=== PATIENT | male | born 1950 | race Caucasian/White ===

== ENCOUNTER 2018-09-03 11:57 | Emergency (ER) | payer MEDICARE, BC ==
--- NOTE | 2018-09-03 12:57 | ER Document Report ---
ED GI/ - General Stated Complaint: ABDOMINAL PAIN Time Seen by Provider: 09/03/18 12:41 Primary Care Provider: NICOLE CARTER MD [Primary Care Provider] - Follow up as needed Notes: Patient is a 68-year-old male who states he has had some abdominal pain since April. He states it is constant. It is to the lower abdomen. No noticeable aggravating or relieving factors. No fevers, vomiting, diarrhea, or dysuria. No radiation to the back. Patient was supposed to have a colonoscopy performed by the excel vba developer Dr. Butterfield. This was held off until cardiac clearance was obtained. This recently has been obtained but the patient still has not yet had a colonoscopy. Patient had an unremarkable CT scan at an outside facility in April. TRAVEL OUTSIDE OF THE [place] IN LAST 30 DAYS: No - Related Data Allergies/Adverse Reactions: No Known Allergies Allergy (Unverified 04/23/16 04:28) Past Medical History - Social History Smoking Status: Unknown if Ever Smoked Family History: Reviewed & Not Pertinent Review of Systems - Review of Systems Constitutional: denies: Fever EENT: denies: Eye discharge, Nose discharge Cardiovascular: See HPI. denies: Chest pain, Palpitations Respiratory: denies: Short of breath Gastrointestinal: denies: Vomiting Genitourinary: denies: Dysuria Musculoskeletal: denies: Leg swelling Skin: Other - no hives. denies: Rash Neurological/Psychological: Other - no slurred speech -: Yes All other systems reviewed and negative Physical Exam - Vital signs Vitals: Resp BP 18 147/128 H 09/03/18 12:07 09/03/18 12:07 - Notes Notes: Reviewed vital signs and nursing note as charted by RN. CONSTITUTIONAL: Alert and oriented and responds appropriately to questions. Well-appearing; well-nourished HEAD: Normocephalic; atraumatic EYES: PERRL; Sclerae non-icteric ENT: Normal nose; no rhinorrhea; moist mucous membranes; pharynx without lesions noted NECK: Supple without meningismus; non-tender CARD: Regular rate and rhythm; no murmurs; symmetric distal pulses RESP: Normal chest excursion without splinting or tachypnea; breath sounds clear and equal bilaterally ABD/GI: Normal bowel sounds; non-distended; soft, mild tenderness to all 4 quadrants of the abdomen; no abdominal bruit; no palpable organomegaly or masses : Patient has no inguinal swelling, testicular pain or swelling BACK: The back appears normal and is non-tender to palpation EXT: Normal ROM in all joints; non-tender to palpation; no edema SKIN: No acute lesions noted NEURO: CN 2-12 intact; 5/5 bilateral upper and lower extremity strength with sensation intact to light touch PSYCH: The patient's mood and manner are appropriate. Grooming and personal hygiene are appropriate. Course - Re-evaluation Re-evalutation: 09/03/18 12:57 Given the history and physical examination and the patient's age I will obtain basic labs, liver panel, lipase, lactic acid level, EKG, CT scan of the abdomen and pelvis. She has no abdominal bruits or focal tenderness. No inguinal m asses or scrotal tenderness present. 09/03/18 13:21 EKG shows a heart of 86, atrial sensed ventricular paced 09/03/18 14:57 No change in exam. No vomiting here. Hemoccult is negative. White blood cell count is normal. Lactic acid, creatinine, and liver panel as recorded. CT is pending at 330. 09/03/18 15:20 I spoke to the patient and the who states that the patient has a history of chronic kidney disease. Dr. Rich is the primary care physician but her office is currently closed. Patient is being taken to CT. 09/03/18 16:22 CT scan shows a pleural effusion/possible infiltrate. However the patient has been afebrile with no cough or shortness of breath. CT scan as recorded o alicia. Given the patient's pain, age, lactic acid of 3.5, I have consulted surgery. Mesenteric ischemia given the vasculopathic nature of the patient is possible, but I am uncertain what to make of the lactic acid given his elevated creatinine. There is no old labs here in the patient's primary care physician is currently closed so I am not able to evaluate the patient's past laboratory values. 09/03/18 17:[address] Villeda has reviewed the labs, imaging, and is examined the patient. He does not believe that this is an acute abdominal problem that requires admission. He believes that the patient's lactic acid elevation is most likely baseline. I have attempted to call the patient's sushi chef, Dr. Dick, that the patient supposedly has seen for chronic kidney disease in the past. She states she has not seen the patient for a couple years. The patient himself states that his creatinine was 5 in the past. Patient does have a CT scan showing a pleural effusion but again the patient has no shortness of breath, heart rate is 67, satting 100% on room air with no cough or fever. I do not believe imaging of the chest or antibiotics are necessary for this particular indication. Patient has no distinct right upper quadrant abdominal pain. Patient does have some transaminitis with a bilirubin as recorded. CT scan shows no obvious stones or signs of inflammation of the gallbladder. The surgeon who evaluated the patient at bedside does not believe that this is gallbladder related. I have ordered a repeat lactic acid. Patient and family would like to go home. I believe if the above repeat lactic acid is unchanged or improved, given the chronic history of the patient's symptoms, having chronic kidney disease according to the patient and his , that this is a reasonable option. Patient has scheduled outpatient follow-up with a excel vba developer for colonoscopy. 09/03/18 18:28 Repeat lactic acid is 3.49. Patient has drank juice with no acute discomfort. No vomiting or diarrhea here. Repeat examination is improved. Patient has received a liter of fluid. Given the extensive history and physical and discussion above, with repeat examinations, repeat lactic acid, surgical consultation, follow-up scheduled with a excel vba developer, patient's desire, patient will be discharged home with strict return precautions and follow-up with the primary provider and excel vba developer. - Vital Signs Vital signs: Temp Pulse Resp BP Pulse Ox 98.7 F 21 H 93/77 L 100 09/03/18 12:56 09/03/18 16:00 09/03/18 15:23 09/03/18 15:02 - Laboratory Result Diagrams: 09/03/18 11:35 09/03/18 11:35 Laboratory results interpreted by me: 09/03/18 09/03/18 09/03/18 11:35 11:35 12:35 Hgb 10.8 L Hct 34.9 L MCV 75 L MCH 23.2 L MCHC 31.0 L RDW 21.3 H Seg Neuts % (Manual) 85 H Lymphocytes % (Manual) 8 L Potassium 3.2 L BUN 78 H Creatinine 2.81 H Est GFR ( Amer) 27 L Est GFR (Non-Af Amer) 22 L Glucose 147 H Lactic Acid Calcium 8.1 L Total Bilirubin 2.8 H Direct Bilirubin 1.8 H AST 150 H ALT 137 H Alkaline Phosphatase 191 H Lipase 457.3 H Urine Protein 100 H Urine Blood MODERATE H Urine Urobilinogen 2.0 H 09/03/18 09/03/18 14:10 17:26 Hgb Hct MCV MCH MCHC RDW Seg Neuts % (Manual) Lymphocytes % (Manual) Potassium BUN Creatinine Est GFR ( Amer) Est GFR (Non-Af Amer) Glucose Lactic Acid 3.5 H 3.5 H Calcium Total Bilirubin Direct Bilirubin AST ALT Alkaline Phosphatase Lipase Urine Protein Urine Blood Urine Urobilinogen Discharge - Discharge Clinical Impression: Transaminitis Abdominal pain Qualifiers: Abdominal location: unspecified location Qualified Code(s): R10.9 - Unspecified abdominal pain Chronic renal failure Qualifiers: Chronic kidney disease stage: unspecified stage Qualified Code(s): N18.9 - Chronic kidney disease, unspecified Condition: Good Disposition: HOME, SELF-CARE Additional Instructions: Come back immediately with any worsening pain, fevers, vomiting, cough, shortness of breath, or any other acute problems. It is very important for you to follow-up with your excel vba developer as scheduled for your colonoscopy, and please have your primary care physician repeat your creatinine as it is 2.81 today. Please return at any time that you would like for further evaluation and admission. Referrals: NICOLE CARTER MD [Primary Care Provider] - Follow up as needed
[2018-09-03 13:40] LABS: HEMATOCRIT 34.9 % (37.9-51.0); HEMOGLOBIN 10.8 g/dL (13.5-17.0); MEAN CORPUSCULAR HEMOGLOBIN 23.2 pg (27.0-33.4); MEAN CORPUSCULAR VOLUME 75 fl (80-97); PLATELET COUNT 154 10^3/uL (150-450); RED BLOOD COUNT 4.65 10^6/uL (4.35-5.55); RED CELL DISTRIBUTION WIDTH 21.3 % (11.5-14.0); WHITE BLOOD COUNT 6.7 10^3/uL (4.0-10.5)
[2018-09-03 13:43] LABS: APPEARANCE,URINE CLEAR; BILIRUBIN,URINE NEGATIVE (NEGATIVE); COLOR,URINE YELLOW; GLUCOSE, URINE NEGATIVE (NEGATIVE); KETONES,URINE NEGATIVE (NEGATIVE); LEUKOCYTE ESTERASE,URINE NEGATIVE (NEGATIVE); NITRITE,URINE NEGATIVE (NEGATIVE); PROTEIN,URINE 100 mg/dL (NEGATIVE); URINE SPECIFIC GRAVITY 1.017
[2018-09-03 13:47] LABS: ALANINE AMINOTRANSFERASE 137 U/L (21-72); ALBUMIN 3.6 g/dL (3.5-5.0); ALKALINE PHOSPHATASE 191 U/L (38-126); ANION GAP 14 (5-19); ASPARTATE AMINO TRANSFERASE 150 U/L (17-59); BILIRUBIN,DIRECT 1.8 mg/dL (0.0-0.4); BILIRUBIN,TOTAL 2.8 mg/dL (0.2-1.3); BLOOD UREA NITROGEN 78 mg/dL (7-20); CALCIUM 8.1 mg/dL (8.4-10.2); CARBON DIOXIDE 24 mmol/L (22-30); CHLORIDE 102 mmol/L (98-107); GLUCOSE 147 mg/dL (75-110); LIPASE 457.3 U/L (23-300); POTASSIUM 3.2 mmol/L (3.6-5.0); SODIUM 139.8 mmol/L (137-145); TOTAL PROTEIN 6.6 g/dL (6.3-8.2)
[2018-09-03 14:03] LABS: ABSOLUTE LYMPHOCYTES# (MANUAL) 0.5 10^3/uL (0.5-4.7); ABSOLUTE MONOCYTES # (MANUAL) 0.4 10^3/uL (0.1-1.4); ABSOLUTE NEUTROPHILS# (MANUAL) 5.7 10^3/uL (1.7-8.2); BASOPHILS % (MANUAL) 1 % (0-2); EOSINOPHILS % (MANUAL) 0 % (0-6); LYMPHOCYTES % (MANUAL) 8 % (13-45); MONOCYTES % (MANUAL) 6 % (3-13); SEGMENTED NEUTROPHILS % (MAN) 85 % (42-78); TOTAL CELLS COUNTED 100
[2018-09-03 14:06] LABS: ACANTHOCYTES SLIGHT; ANISOCYTOSIS 2+; BURR CELLS 1+; OVALOCYTES 1+; PLATELET COMMENT ADEQUATE; POIKILOCYTOSIS 2+; POLYCHROMASIA SLIGHT; TOXIC GRANULATION SLIGHT
[2018-09-03] MEDS ORDERED: NORMAL SALINE 1000 ML 1,000 ML IV ONE (14:58)
--- NOTE | 2018-09-03 15:56 | RADIOLOGY REPORT (SQ) ---
EXAM DESCRIPTION: CT ABD/PELVIS ORAL ONLY COMPLETED DATE/TIME: 09/03/2018 3:44 pm REASON FOR STUDY: 2, abdominal pain COMPARISON: None. TECHNIQUE: CT scan of the abdomen and pelvis performed without intravenous or oral contrast. Images reviewed with lung, soft tissue, and bone windows. Reconstructed coronal and sagittal MPR images revi ewed. All images stored on PACS. All CT scanners at this facility use dose modulation, iterative reconstruction, and/or weight based d osing when appropriate to reduce radiation dose to as low as reasonably achievable (ALARA). [facility]: Dose Right [facility]: CareDose [facility]: Dose Right [facility]: Teradose 4D [facility]: [employer] RADIATION DOSE: CT Rad equipment meets quality standard of care and radiation dose reduction techniq ues were employed. CTDIvol: 8.6 mGy. DLP: 480 mGy-cm.mGy. LIMITATIONS: None. FINDINGS: LOWER CHEST: There is a moderate right-sided pleural effusion. There is associated right basilar atelectasis. Left lung field is clear. NON-CONTRASTED LIVER, SPLEEN, ADRENALS: There is a small amount of perihepatic and perisplenic fluid. No focal hepatic splenic lesions. No adrenal masses. PANCREAS: The pancreas is atrophic. GALLBLADDER: No identified stones by CT criteria. No inflammatory changes to suggest cholecystitis. RIGHT KIDNEY AND URETER: Areas of cortical thinning. No suspicious masses pre No significant calci fications. No hydronephrosis or hydroureter. LEFT KIDNEY AND URETER: No suspicious masses. Assessment limited by lack of IV contrast. No signifi cant calcifications. No hydronephrosis or hydroureter. AORTA AND RETROPERITONEUM: The aorta demonstrates atherosclerotic change. Visceral vessels are calci fied. No aneurysmal dilatation. BOWEL AND PERITONEAL CAVITY: Gas pattern is nonobstructive. No focal inflammatory changes. APPENDIX: Not visualized. PELVIS, BLADDER, AND ABDOMINAL WALL:There is subcutaneous edema. No free fluid in the pelvis. BONES: No significant findings. OTHER: No other significant finding. IMPRESSION: 1. Moderate right-sided pleural effusion. There is associated right basilar atelectasis and/or pneumonia. 2. Small amount of fluid surrounding the liver and spleen. Ideology of this is uncertain. No focal hepatic or splenic masses. 3. Diffuse atherosclerotic change of the abdominal aorta. Largest diameter is 2.9 cm. COMMENT: Quality ID # [id number]: Final reports with documentation of one or more dose reduction techniques (e.g., Automated exposure control, adjustment of the mA and/or kV according to patient size, use of iterative reconstruction technique) TECHNICAL DOCUMENTATION: JOB ID: [id number] [employer]- All Rights Reserved Reading location - IP/workstation name: [email or web address]
--- NOTE | 2018-09-03 17:16 | PDOC CONSULTATION ---
Consultation Consult Date: 09/03/18 Attending physician:: Daniel Consult reason:: Abdominal pain History of Present Illness Admission Date/PCP: NICOLE CARTER MD Patient complains of: Abdominal pain History of Present Illness: MATTIE BRUCE is a 68 year old male Presents to the emergency department via ground rescue accompanied by his coming from home to the emergency department at [facility] because in essence the patient has intractable abdominal pain, inanition, difficulty ambulating, and decreased bowel activity. Patient has a long history of mu ltiple chronic medical problems, in his usual state of poor health, transferring bed to chair limited ambulation. 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 He has diffuse ao rtoiliac disease, status post right AKA. Patient is on chronic pain management for musculoskeletal, abdominal and peripheral vascular pain. Patient was seen in the emergency department where he had a CT scan of the abdomen and pelvis with oral contrast which showed fluid around the spleen, right lower lobe atelectasis, small effusion, diffuse aorto iliac atherosclerotic disease. Surgery was consulted for opinion. Of note patient lactate level was 8.5. According the patient and his , he has had chronic abdominal pain for months. He was to have a colonoscopy by Dr. Almazan but the patient's AICD served battery malfunction and need to be replaced. The colonoscopy had not been rescheduled. Patient has no history of gastrointestinal disorders other than inanition. Past Medical History Past Medical History: History of head neck cancer, peripheral vascular disease, hyperlipidemia, coronary artery disease, history of multiple myocardial infarctions and stent placement. History of extracranial carotid artery disease. Chronic renal insufficiency Cardiac Medical History: Reports: Hypertension Hematology: Reports: Anemia Past Surgical History Past Surgical History: Appendectomy, carotid endarterectomy x3 right neck; pacer defibrillator left subclavian position, multiple revascularizations right lower extremity terminating right [id number] amputation. Past Surgical History: Reports: Appendectomy, Cardiac Catheterization Social History Information Source: Patient Lives with: Other - Smoking Status: Unknown if Ever Smoked Past Social History Note: Patient has a long history of smoking stopped 20+ years ago. Family History Family History: Reviewed & Not Pertinent Parental Family History Reviewed: Yes Children Family History Reviewed: Yes Sibling(s) Family History Reviewed.: Yes Medication/Allergy Allergies/Adverse Reactions: No Known Allergies Allergy (Unverified 04/23/16 04:28) Review of Systems ROS unobtainable: Other - patient has a constellation of chronic medical problems, with chronic symptoms involving all of his organ systems. He is cared for by his at their home in Physical Exam Vital Signs: Temp Pulse Resp BP Pulse Ox 98.7 F 21 H 93/77 L 100 09/03/18 12:56 09/03/18 16:00 09/03/18 15:23 09/03/18 15:02 General appearance: PRESENT: no acute distress Head exam: PRESENT: normocephalic Eye exam: PRESENT: other - No jaundice Mouth exam: PRESENT: dry mucosa Teeth exam: PRESENT: poor dentation Neck exam: PRESENT: other - Multiple scars right neck with tissue loss; no carotid upstroke appreciated. Respiratory exam: PRESENT: rhonchi - Right lower lung field GI/Abdominal exam: PRESENT: other - Slightly protuberant no peritoneal signs no rigidity no umbilical or groin hernias. No distention; no organomegaly Rectal exam: PRESENT: deferred Gentrourinary exam: PRESENT: testicular tenderness Musculoskeletal exam: PRESENT: other - Chronic hemic changes to left foot, left great toe in particular Neurological exam: PRESENT: awake, oriented to person, oriented to place, oriented to time Psychiatric exam: PRESENT: appropriate affect Results Laboratory Results: 09/03/18 11:35 09/03/18 11:35 09/03/18 09/03/18 09/03/18 11:35 11:35 12:35 WBC 6.7 RBC 4.65 Hgb 10.8 L Hct 34.9 L MCV 75 L MCH 23.2 L MCHC 31.0 L RDW 21.3 H Plt Count 154 Seg Neutrophils % Not Reportable Lymphocytes % Not Reportable Monocytes % Not Reportable Eosinophils % Not Reportable Basophils % Not Reportable Absolute Neutrophils Not Reportable Absolute Lymphocytes Not Reportable Absolute Monocytes Not Reportable Absolute Eosinophils Not Reportable Absolute Basophils Not Reportable Sodium 139.8 Potassium 3.2 L Chloride 102 Carbon Dioxide 24 Anion Gap 14 BUN 78 H Creatinine 2.81 H Est GFR ( Amer) 27 L Est GFR (Non-Af Amer) 22 L Glucose 147 H Lactic Acid Calcium 8.1 L Total Bilirubin 2.8 H AST 150 H ALT 137 H Alkaline Phosphatase 191 H Total Protein 6.6 Albumin 3.6 Lipase 457.3 H Urine Color YELLOW Urine Appearance CLEAR Urine pH 5.0 Ur Specific Crump 1.017 Urine Protein 100 H Urine Glucose (UA) NEGATIVE Urine Ketones NEGATIVE Urine Blood MODERATE H Urine Nitrite NEGATIVE Ur Leukocyte Esterase NEGATIVE Urine WBC (Auto) 1 Urine RBC (Auto) 0 09/03/18 14:10 WBC RBC Hgb Hct MCV MCH MCHC RDW Plt Count Seg Neutrophils % Lymphocytes % Monocytes % Eosinophils % Basophils % Absolute Neutrophils Absolute Lymphocytes Absolute Monocytes Absolute Eosinophils Absolute Basophils Sodium Potassium Chloride Carbon Dioxide Anion Gap BUN Creatinine Est GFR ( Amer) Est GFR (Non-Af Amer) Glucose Lactic Acid 3.5 H Calcium Total Bilirubin AST ALT Alkaline Phosphatase Total Protein Albumin Lipase Urine Color Urine Appearance Urine pH Ur Specific Crump Urine Protein Urine Glucose (UA) Urine Ketones Urine Blood Urine Nitrite Ur Leukocyte Esterase Urine WBC (Auto) Urine RBC (Auto) Impressions: Abdomen/Pelvis CT 09/03/18 12:54 IMPRESSION: 1. Moderate right-sided pleural effusion. There is associated right basilar atelectasis and/or pneumonia. 2. Small amount of fluid surrounding the liver and spleen. Ideology of this is uncertain. No focal hepatic or splenic masses. 3. Diffuse atherosclerotic change of the abdominal aorta. Largest diameter is 2.9 cm. Assessment & Plan - Diagnosis (1) Abdominal pain Is this a current diagnosis for this admission?: Yes Plan: Impression: Patient does not have an acute intra-abdominal problem based on clinical history and laboratory profile and CT scan of the abdomen and pelvis. His abdominal pain is chronic, possibly related to chronic constipation but could be related to chronic mesenteric ischemia. Nonetheless this is not a new problem. The slightly elevated lactate level may be related to renal insufficiency. Comparison with previous labs may be useful. Medications: 1. As explained to the patient, his , and Dr. Sanchez, there is no indication for surgical intervention at this time. I do not think additional imaging will be of value. Furthermore I told patient that I did not think performing a colonoscopy at this time with 2. Patient may benefit from cathartics. 3. Right lower lobe atelectasis possible early pneumonia to be evaluated further. 4. Please reconsult surgery if indicated. (2) Peripheral vascular disease Is this a current diagnosis for this admission?: Yes (3) Coronary artery disease Is this a current diagnosis for this admission?: Yes (4) History of CA (myocardial infarction) Is this a current diagnosis for this admission?: Yes (5) Chronic renal disease Is this a current diagnosis for this admission?: Yes (6) History of right above knee amputation Is this a current diagnosis for this admission?: Yes
[2018-09-03 19:05] VITALS: BP 102/81
--- NOTE | 2018-09-03 21:20 | EKG REPORT ---
SEVERITY:- ABNORMAL ECG - ATRIAL-SENSED VENTRICULAR-PACED COMPLEXES : Confirmed by: Renetta Lacy MD 03-Sep-2018 21:19:48
== END 2018-09-03 19:04 | disposition home or self-care (01) ==
LOC: ER 11:57
DX: R10.30 Lower abdominal pain, unspecified (principal); N18.9 Chronic kidney disease, unspecified; R74.0 Nonspecific elevation of levels of transaminase and lactic acid dehydrogenase [LDH]; R10.811 Right upper quadrant abdominal tenderness; R10.812 Left upper quadrant abdominal tenderness; R10.813 Right lower quadrant abdominal tenderness; R10.814 Left lower quadrant abdominal tenderness; J90 Pleural effusion, not elsewhere classified
CPT/HCPCS: 93005; 99285; 36415; 83605; 83690; 85025; 80053; 81001; 74176; 93010; J7030